=== PATIENT | male | born 1965 | race Caucasian/White ===

== ENCOUNTER 2020-03-29 09:00 | Emergency (ER) | payer BC, SELFPAY ==
[2020-03-29 09:00] VITALS: BP 149/87; PULSE 81; RESP 16; TEMP 36.7; O2SAT 98; BMI 31.7
--- NOTE | 2020-03-29 09:01 | PC.NURSE ---
radiology notified of CT stroke protocol
--- NOTE | 2020-03-29 09:01 | CT_ITS ---
PROCEDURE: CT HEAD/BRAIN WO CON CLINICAL INDICATION: stroke protocol Dizziness, double vision, right-sided weakness COMPARISON: No exams were available for comparison TECHNIQUE: Axial images obtained. All CT scans at the facility use one or more dose reduction, viz: automated exposure control, ma/kV adjustment per patient size (including targeted exams where dose is matched to indication, i.e. head), or iterative reconstruction technique. FINDINGS: No midline shift, mass effect, intracranial hemorrhage, hydrocephalus, or extra-axial fluid collection is evident. The calvarium has an unremarkable appearance. No mastoid effusion. There is minimal mucosal thickening of the maxillary sinus on the right IMPRESSION: No acute intracranial finding Dictated by: Armando Conklin MD 03/29/2020 09:25 Armando Conklin MD in [facility] 03/29/2020 09:25
--- NOTE | 2020-03-29 09:05 | PC.NURSE ---
contacted radiology to check to make sure about staff coming to get pt for stroke protocol CT, spoke with Brianna states staff is coming down to get pt
--- NOTE | 2020-03-29 09:05 | PC.NURSE ---
FSBS on arrival is 123
--- NOTE | 2020-03-29 09:12 | PC.NURSE ---
pt to CT at this time
--- NOTE | 2020-03-29 09:14 | PC.NURSE ---
Pt to rad at this time.
--- NOTE | 2020-03-29 09:17 | XR_ITS ---
PROCEDURE: XR CHEST PORTABLE CLINICAL HISTORY: cough COMPARISON: No exams were available for comparison FINDINGS: The cardiomediastinal silhouette and pulmonary vascularity are within normal limits. The lungs are clear without infiltrates, suspicious nodules, or pleural effusions. Calcified granuloma left upper lobe. Nonspecific slight elevation of the left hemidiaphragm. No acute bony findings. IMPRESSION: No acute findings. Dictated by: Armando Conklin MD 03/29/2020 09:53 Armando Conklin MD in [facility] 03/29/2020 09:53
--- NOTE | 2020-03-29 09:24 | [facility].EDWEAK ---
ED Disposition Clinical Impression: Vertigo, Arm paresthesia, right Disposition: Home, Self-Care Condition on Discharge: Good Instructions: DI for Vertigo Prescriptions: Meclizine HCl [Meclizine 25mg Tab] 25 mg PO BID #20 tab Prescription Printed Referrals: Luz Marina Phan [Primary Care Provider] - Ileana Lea MD [Staff Physician] - - Critical Care Critical Care Time: No Attestation: On , the high probability of a clinically significant, sudden or life threatening deterioration of the following system(s) required my full and direct attention, intervention and personal management. The time I documented below is in addition to time spent performing reported procedures but includes the following listed in this critical care notation. Medical Decision Making - Medical Records Medical records reviewed: Yes: I reviewed the patient's medical records. - Damaso Inquiry Pt receiving controlled substance: No Vital Signs: 03/29/20 09:00 03/29/20 09:28 03/29/20 10:21 Temperature 98.0 F Temperature Source Oral Pulse Rate [Right Radial] 81 81 61 Respiratory Rate 16 Blood Pressure [Right Arm] 149/87 H 128/82 110/73 Blood Pressure Mean [Right Arm] 107 97 85 Blood Pressure Source [Right Arm] Automatic Cuff Automatic Cuff Automatic Cuff Blood Pressure Position [Right Arm] Sitting Sitting Sitting 02 Sat by Pulse Oximetry 98 98 96 Oxygen Delivery Method Room Air Room Air Room Air 03/29/20 10:36 03/29/20 11:57 Temperature Temperature Source Pulse Rate [Right Radial] 70 65 Respiratory Rate Blood Pressure [Right Arm] 100/63 L 120/80 Blood Pressure Mean [Right Arm] 75 93 Blood Pressure Source [Right Arm] Automatic Cuff Automatic Cuff Blood Pressure Position [Right Arm] Sitting Sitting 02 Sat by Pulse Oximetry 97 98 Oxygen Delivery Method Room Air Room Air - Lab Data Lab Results 03/29/20 09:53: Urine Color Yellow, Urine Appearance Clear, Urine pH 6.0, Ur Specific [place] 1.010, Urine Protein Negative, Urine Glucose (UA) Negative, Urine Ketones Negative, Urine Blood Negative, Urine Nitrate Negative, Urine Bilirubin Negative, Urine Urobilinogen 0.2, Ur Leukocyte Esterase Negative, Urine WBC 3-5, Ur Squamous Epith Cells Occasional 03/29/20 09:53: WBC 9.7, RBC 5.23, Hgb 16.7, Hct 48.6, MCV 93.0, MCH 32.0 H, MCHC 34.4, RDW 13.4, Plt Count 245, MPV 8.1, Neut % (Auto) 75.3, Lymph % (Auto) 18.7, [place] % (Auto) 4.4, Eos % (Auto) 1.0, Baso % (Auto) 0.5, Neut # (Auto) 7.3, Lymph # (Auto) 1.8, [place] # (Auto) 0.4, Eos # (Auto) 0.1, Baso # (Auto) 0.1 03/29/20 09:53: Sodium 137, Potassium 4.0, Chloride 102, Carbon Dioxide 26, Anion Gap 13.0, BUN 15, Creatinine 0.80, Estimated Creat Clear 165, Estimated GFR 100, Est GFR ( Amer) 121, Glucose 108 H, Calcium 9.7, Total Bilirubin 0.7, AST 39, ALT 27, Alkaline Phosphatase 43, Troponin I < 0.01, NT-Pro-B Natriuret Pep 95.6, Total Protein 7.6, Albumin 4.8, Globulin 2.8, Albumin/Globulin Ratio 1.7, TSH 2.43 Result diagrams: 03/29/20 09:53 03/29/20 09:53 Orders (Tests/Meds): ORDERS Category Date Time Status Troponin I Q3H Lab 03/29/20 12:30 Ordered Troponin I Q3H Lab 03/29/20 15:30 Ordered - Radiology Data #1 Image(s): Chest Image Reviewed: Yes I reviewed the patient's radiology results, Yes I reviewed the patient's radiology image, Yes I have reviewed radiologist's interpretation Preliminary Findings: Normal/NAD #2 Image(s): Other (MRI Brain) Image Reviewed: Yes I reviewed the patient's radiology results, Yes I have reviewed radiologist's interpretation 1. No acute intracranial finding. No evidence of acute infarction. 2. Nonspecific T2 white matter hyperintensities suggesting ischemic gliotic change from microvascular disease. Differential diagnosis would include migraine headache or demyelination. - CT Data CT Scan: Head Time Received: 12:[address] Reviewed: Yes: I have reviewed the patient's CT results, I have viewed the radiol
--- NOTE | 2020-03-29 09:24 | PC.NURSE ---
Pt returned from rad
[2020-03-29 09:28] VITALS: BP 128/82; PULSE 81; O2SAT 98
--- NOTE | 2020-03-29 09:34 | PC.NURSE ---
Pt up urinating at this time. Will do EKG when he is finished.
--- NOTE | 2020-03-29 09:45 | ECG_ITS ---
APPROVED REPORT Exam: Resting ECG HR:74 bpm ECG Measurements Heart Rate 74 AXES CO 182 P 72 QRSd 104 QRS 20 QT 400 T 3 QTc 444 Conclusion Normal sinus rhythm Isolated q in III Abnormal ECG Electronically signed by : Joey Simon, 03/30/2020 19:37:48
--- NOTE | 2020-03-29 09:55 | PC.NURSE ---
pt reports he takes Lisinopril 20/25 mg, states he is supposed to take 1 tablet daily but states a 30 day supply will normally last him approx 90 days, states he does not take it like he is supposed to.
[2020-03-29 10:04] LABS: Microscopic, Urine URINE MICROSCOPIC (MICROSCOPIC)
[2020-03-29 10:06] LABS: Appearance,Urine CLEAR (Clear); Bilirubin,Urine Negative (Negative); Blood, Urine Negative (Negative); Color,Urine YELLOW (Yellow); Glucose,Urine (UA) Negative (Negative); Ketones,Urine Negative (Negative); Leukocyte Esterase,Urine Negative (Negative); Nitrate,Urine Negative (Negative); Protein,Urine Negative (Negative); Urobilinogen,Urine 0.2 EU/dl (0.2)
[2020-03-29 10:08] LABS: Basophils # 0.1 K/mm3 (0-0.2); Basophils % 0.5 % (0.1-2.0); Eosinophils # 0.1 K/mm3 (0.0-0.4); Hematocrit 48.6 % (42.0-52.0); Hemoglobin 16.7 g/dL (14.1-18.0); Lymphocytes # 1.8 K/mm3 (0.7-4.5); Lymphocytes % 18.7 % (10-50); Mean Corpuscular HGB Conc 34.4 g/dL (31.8-35.4); Mean Platelet Volume 8.1 fl (7.4-10.4); Monocytes # 0.4 K/mm3 (0.1-1.0); Monocytes % 4.4 % (1.7-9.3); Neutrophils # 7.3 K/mm3 (1.8-7.8); Neutrophils % 75.3 % (37.0-80.0); Platelet Count 245 K/mm3 (142-424); Red Blood Count 5.23 M/mm3 (4.60-6.20); Red Cell Distribution Width 13.4 % (11.5-17.5); White Blood Count 9.7 K/mm3 (4.8-10.8)
[2020-03-29 10:14] LABS: Chloride 102 mmol/L (98-107)
[2020-03-29 10:15] LABS: Sodium 137 mmol/L (136-145)
[2020-03-29 10:17] LABS: Alanine Aminotransferase 27 U/L (12-78); Alkaline Phosphatase 43 U/L (38-126); Aspartate Amino Transferase 39 U/L (17-59); Bilirubin,Total 0.7 mg/dl (0.2-1.3); Blood Urea Nitrogen 15 mg/dl (9-20); Creatinine Clearance Estimated 165 mL/min (50-200); Estimated Glomerular Filt Rate 100 ml/min (>60); GFR (African American) 121 ML/MIN (>60)
[2020-03-29 10:18] LABS: Albumin Level 4.8 g/dl (3.5-5.0); Albumin/Globulin Ratio 1.7 (1.1-1.8); Calcium 9.7 mg/dl (8.4-10.2); Carbon Dioxide 26 mmol/L (22.0-30.0); Globulin 2.8 g/dL (1.3-3.2); Glucose 108 mg/dl (74-100); Total Protein,Serum 7.6 g/dl (6.3-8.2)
[2020-03-29 10:21] VITALS: BP 110/73; PULSE 61; O2SAT 96
[2020-03-29 10:25] LABS: Squamous Epithelial Cell,Urine Occasional #/hpf (0-5)
[2020-03-29 10:27] LABS: NT Pro Brain Natriuretic Pep. 95.6 pg/mL (0-125)
[2020-03-29 10:32] LABS: Troponin I < 0.01 ng/ml (0.00-0.034)
--- NOTE | 2020-03-29 10:33 | PC.NURSE ---
contacted MRI r/t ER requesting pt have an MRI head. Spoke with Charis states she can come get pt in approx 20-30 minutes. Notified ER
--- NOTE | 2020-03-29 10:35 | MR_ITS ---
PROCEDURE: MR HEAD/BRAIN WO CON CLINICAL INDICATION: RULE OUT STROKE Right-sided weakness with slurred speech COMPARISON: CT CT HEAD/BRAIN WO CON from 03/29/2020 TECHNIQUE: Routine multiplanar multi echo sequences are performed without gadolinium enhancement. FINDINGS: No midline shift, mass effect, intracranial hemorrhage, or hydrocephalus is evident. No evidence of restricted diffusion that would indicate an area of acute infarction. There are few scattered periventricular T2 white matter hyperintensities which are nonspecific and may be due to ischemic gliotic change from microvascular disease. These areas do not demonstrate restricted diffusion. The cerebellopontine angles, cerebellum, and brainstem have an unremarkable appearance. The pituitary, optic chiasm, corpus callosum, and craniocervical junction have an unremarkable appearance. No mastoid effusion or sinus air-fluid level. IMPRESSION: 1. No acute intracranial finding. No evidence of acute infarction. 2. Nonspecific T2 white matter hyperintensities suggesting ischemic gliotic change from microvascular disease. Differential diagnosis would include migraine headache or demyelination. Dictated by: Armando Conklin MD 03/29/2020 11:58 Armando Conklin MD in [facility] 03/29/2020 11:58
[2020-03-29 10:36] VITALS: BP 100/63; PULSE 70; O2SAT 97
[2020-03-29 10:49] LABS: Thyroid Stimulating Hormone 2.43 uIU/mL (0.465-4.68)
--- NOTE | 2020-03-29 10:58 | PC.NURSE ---
Pt to MRI at this time.
--- NOTE | 2020-03-29 11:53 | PC.NURSE ---
pt return from MRI
[2020-03-29 11:57] VITALS: BP 120/80; PULSE 65; O2SAT 98
[2020-03-29 12:40] VITALS: BP 124/64; PULSE 68; RESP 18; TEMP 36.7; O2SAT 98
[2020-04-01 08:56] LABS: POC Glucose,Bedside 123 (70-110)
== END 2020-03-29 12:40 | disposition home or self-care (01) ==
PROVIDERS: Emergency Provider Emergency Medicine; PCP Family Medicine
DX: R42 Dizziness and giddiness (principal); R20.2 Paresthesia of skin; I10 Essential (primary) hypertension
CPT/HCPCS: 70450; 70551; 71045; 80053; 81001; 82962; 83880; 84443; 84484; 85025; 93005; 99284

== ENCOUNTER 2020-12-12 10:20 | Emergency (ER) | payer BC, SELFPAY ==
[2020-12-12] VITALS (11 sets, daily range): BP systolic 123–183; BP diastolic 69–93; PULSE 58–86; RESP 18–20; TEMP 36.7; O2SAT 96–98; BMI 32.1
--- NOTE | 2020-12-12 10:30 | CT_ITS ---
PROCEDURE INFORMATION: Exam: CT Angiography Neck With Contrast Exam date and time: 12/12/2020 10:30 AM Age: 55 years old Clinical indication: Dizziness and giddiness and weakness; Additional info: Dizzy, weakness TECHNIQUE: Imaging protocol: Computed tomography angiography of the neck with contrast. 3D rendering (Not supervised by radiologist): MIP and/or 3D reconstructed images were created by the technologist. Radiation optimization: All CT scans at this facility use at least one of these dose optimization techniques: automated exposure control; mA and/or kV adjustment per patient size (includes targeted exams where dose is matched to clinical indication); or iterative reconstruction. Contrast material: ISOVUE; Contrast volume: 100 ml; Contrast route: INTRAVENOUS (IV); COMPARISON: CT HEAD/BRAIN WO CON 12/12/2020 12:22 PM FINDINGS: Right common carotid artery: No stenosis. No dissection or occlusion. Right internal carotid artery: No stenosis of the extracranial segment. No dissection or occlusion. Right external carotid artery: No occlusion or stenosis of the origin. Left common carotid artery: No stenosis. No dissection or occlusion. Left internal carotid artery: No stenosis of the extracranial segment. No dissection or occlusion. Left external carotid artery: No occlusion or stenosis of the origin. Right vertebral artery: Right distal vertebral artery not visualized. 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 Thyroid: Low-attenuation nodule in the right thyroid lobe measures 1.5 x 0.7 cm, recommend additional nonemergent ultrasound workup. Soft tissues: Normal. No significant soft tissue swelling. Bones/joints: No acute fracture. IMPRESSION: 1. 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 2. Right distal vertebral artery not visualized. 3. Low-attenuation nodule in the right thyroid lobe measures 1.5 x 0.7 cm, recommend additional nonemergent ultrasound workup. COMMENTS: Consistent with the [employer]'s Incidental Findings Committee white paper (J [employer]iol 2015): In patients aged 35 years and older with an incidental thyroid nodule equal to or greater than 1.[address], MRI or extrathyroidal US, further evaluation with dedicated thyroid US is recommended for patients with normal life expectancy and without comorbidities. For smaller nodules without suspicious features, no further evaluation or follow up is recommended. REFERENCES: NASCET CRITERIA. The degree of internal carotid artery stenosis is based on NASCET criteria. Normal is no stenosis. Mild is less than 50% stenosis. Moderate is 50-69% stenosis. Severe is 70% to 99% stenosis. Total occlusion is no detectable patent lumen.
--- NOTE | 2020-12-12 10:30 | CT_ITS ---
PROCEDURE INFORMATION: Exam: CT Angiography Head With Contrast, Arteriography Exam date and time: 12/12/2020 10:30 AM Age: 55 years old Clinical indication: Dizziness and giddiness and weakness; Additional info: Dizzy, weakness TECHNIQUE: Imaging protocol: Computed tomography angiography of the head with contrast. Exam focused on the arteries. 3D rendering (Not supervised by radiologist): MIP and/or 3D reconstructed images were created by the technologist. Radiation optimization: All CT scans at this facility use at least one of these dose optimization techniques: automated exposure control; mA and/or kV adjustment per patient size (includes targeted exams where dose is matched to clinical indication); or iterative reconstruction. Contrast material: ISOVUE; Contrast volume: 100 ml; Contrast route: INTRAVENOUS (IV); COMPARISON: CT HEAD/BRAIN WO CON 12/12/2020 12:22 PM FINDINGS: ANTERIOR CIRCULATION: Right internal carotid artery: Atherosclerotic calcifications distally. Intracranial segment is patent with no significant stenosis. No aneurysm. Right middle cerebral artery: Unremarkable. No occlusion or significant stenosis. No aneurysm. Right anterior cerebral artery: Unremarkable. No occlusion or significant stenosis. No aneurysm. Left internal carotid artery: Atherosclerotic calcifications distally. Intracranial segment is patent with no significant stenosis. No aneurysm. Left middle cerebral artery: Unremarkable. No occlusion or significant stenosis. No aneurysm. Left anterior cerebral artery: Unremarkable. No occlusion or significant stenosis. No aneurysm. POSTERIOR CIRCULATION: Right vertebral artery: Distal right vertebral artery not visualized. Left vertebral artery: Occluded from the origin until C4 level. Basilar artery: Unremarkable. No occlusion or significant stenosis. No aneurysm. Right posterior cerebral artery: Unremarkable. No occlusion or significant stenosis. No aneurysm. Left posterior cerebral artery: Unremarkable. No occlusion or significant stenosis. No aneurysm. Brain: No definite mass, mass effect, or midline shift. Cerebral ventricles: No ventriculomegaly. Bones/joints: Unremarkable. No acute fracture. Soft tissues: Unremarkable. IMPRESSION: No large vessel stenosis or occlusion in the anterior circulation. Vertebral arteries as detailed on CTA neck report.
--- NOTE | 2020-12-12 10:30 | XR_ITS ---
PROCEDURE INFORMATION: Exam: XR Chest Exam date and time: 12/12/2020 10:30 AM Age: 55 years old Clinical indication: Cough TECHNIQUE: Imaging protocol: XR of the chest. Views: 1 view. COMPARISON: CR XR CHEST PORTABLE 03/29/2020 9:38 AM FINDINGS: Lungs: Possible left basilar infiltrate. Pleural spaces: Unremarkable. No pleural effusion. No pneumothorax. Heart/Mediastinum: Unremarkable. No cardiomegaly. Bones/joints: Unremarkable. IMPRESSION: Possible left basilar infiltrate.
--- NOTE | 2020-12-12 10:35 | ECG_ITS ---
APPROVED REPORT Exam: Resting ECG HR:79 bpm ECG Measurements Heart Rate 79 AXES RI 184 P 59 QRSd 106 QRS 22 QT 388 T 63 QTc 444 Conclusion Normal sinus rhythm Normal ECG Electronically signed by : Joey Simon MD 12/13/2020 18:03:15
--- NOTE | 2020-12-12 10:41 | CT_ITS ---
PROCEDURE INFORMATION: Exam: CT Head Without Contrast Exam date and time: 12/12/2020 10:41 AM Age: 55 years old Clinical indication: Dizziness; Additional info: Dizzy TECHNIQUE: Imaging protocol: Computed tomography of the head without contrast. Radiation optimization: All CT scans at this facility use at least one of these dose optimization techniques: automated exposure control; mA and/or kV adjustment per patient size (includes targeted exams where dose is matched to clinical indication); or iterative reconstruction. COMPARISON: MR HEAD/BRAIN WO CON 03/29/2020 11:11 AM FINDINGS: Brain: Prominent sulci. Patchy hypodensity of the cerebral white matter which are nonspecific but likely secondary to microangiopathic changes. Cerebral ventricles: The ventricles are prominent secondary to diffuse volume loss/atrophy. Paranasal sinuses: Mild mucoperiosteal thickening of the paranasal sinuses. Mastoid air cells: Visualized mastoid air cells are well aerated. Bones/joints: Unremarkable. No acute fracture. Soft tissues: Unremarkable. IMPRESSION: Chronic age related changes but no evidence of acute intracranial pathology.
[2020-12-12 11:04] LABS: Basophils # 0.1 K/mm3 (0-0.2); Basophils % 0.7 % (0.1-2.0); Eosinophils # 0.1 K/mm3 (0.0-0.4); Eosinophils % 1.5 % (0.1-12.0); Hemoglobin 15.8 g/dL (14.1-18.0); Lymphocytes # 1.6 K/mm3 (0.7-4.5); Lymphocytes % 20.1 % (10-50); Mean Corpuscular HGB Conc 33.6 g/dL (31.8-35.4); Mean Corpuscular Hemoglobin 31.2 pg (27.0-31.2); Mean Corpuscular Volume 92.7 fl (80-94); Mean Platelet Volume 8.6 fl (7.4-10.4); Monocytes # 0.4 K/mm3 (0.1-1.0); Monocytes % 4.4 % (1.7-9.3); Neutrophils # 5.8 K/mm3 (1.8-7.8); Neutrophils % 73.4 % (37.0-80.0); Platelet Count 205 K/mm3 (142-424); Red Blood Count 5.07 M/mm3 (4.60-6.20); Red Cell Distribution Width 13.7 % (11.5-17.5)
[2020-12-12 11:10] LABS: Chloride 106 mmol/L (98-107); Sodium 139 mmol/L (136-145)
[2020-12-12 11:12] LABS: Alanine Aminotransferase 25 U/L (12-78); Aspartate Amino Transferase 27 U/L (17-59); Blood Urea Nitrogen 14 mg/dl (9-20); Creatinine Clearance Estimated 189 mL/min (50-200); Estimated Glomerular Filt Rate 117 ml/min (>60); GFR (African American) 141 ML/MIN (>60)
[2020-12-12 11:13] LABS: Albumin Level 4.3 g/dl (3.5-5.0); Albumin/Globulin Ratio 1.7 (1.1-1.8); Alkaline Phosphatase 42 U/L (38-126); Bilirubin,Total 0.6 mg/dl (0.2-1.3); Calcium 9.3 mg/dl (8.4-10.2); Carbon Dioxide 25 mmol/L (22.0-30.0); Globulin 2.6 g/dL (1.3-3.2); Glucose 147 mg/dl (74-100); Total Protein,Serum 6.9 g/dl (6.3-8.2)
[2020-12-12 11:24] LABS: NT Pro Brain Natriuretic Pep. 72.6 pg/mL (0-125)
[2020-12-12 11:27] LABS: Troponin I < 0.01 ng/ml (0.00-0.034)
--- NOTE | 2020-12-12 11:44 | HMH.EDDIZZ ---
ED Disposition Clinical Impression: Occlusion of left vertebral artery, Vertigo Disposition: Xfer Critical Access Hosp Condition on Discharge: Fair Referrals: Provider,Referral, [Primary Care Provider] - - Critical Care Critical Care Time: No Attestation: On 12/12/20, the high probability of a clinically significant, sudden or life threatening deterioration of the following system(s) required my full and direct attention, intervention and personal management. The time I documented below is in addition to time spent performing reported procedures but includes the following listed in this critical care notation. Medical Decision Making - Medical Records Medical records reviewed: Yes: I reviewed the patient's medical records. - Damaso Inquiry Pt receiving controlled substance: No Vital Signs: 12/12/20 10:21 12/12/20 12:11 Temperature 98.0 F Temperature Source Oral Pulse Rate 70 Pulse Rate [Left Radial] 86 Respiratory Rate 18 Blood Pressure 146/88 H Blood Pressure [Right Arm] 183/91 H Blood Pressure Mean 105 Blood Pressure Mean [Right Arm] 121 Blood Pressure Source [Right Arm] Automatic Cuff Blood Pressure Position [Right Arm] Sitting 02 Sat by Pulse Oximetry 96 98 Oxygen Delivery Method Room Air - Lab Data Lab Results 12/12/20 10:55: WBC 8.0, RBC 5.07, Hgb 15.8, Hct 47.0, MCV 92.7, MCH 31.2, MCHC 33.6, RDW 13.7, Plt Count 205, MPV 8.6, Neut % (Auto) 73.4, Lymph % (Auto) 20.1, [place] % (Auto) 4.4, Eos % (Auto) 1.5, Baso % (Auto) 0.7, Neut # (Auto) 5.8, Lymph # (Auto) 1.6, [place] # (Auto) 0.4, Eos # (Auto) 0.1, Baso # (Auto) 0.1 12/12/20 10:55: Sodium 139, Potassium 4.0, Chloride 106, Carbon Dioxide 25, Anion Gap 12.0, BUN 14, Creatinine 0.70, Estimated Creat Clear 189, Estimated GFR 117, Est GFR ( Amer) 141, Glucose 147 H, Calcium 9.3, Total Bilirubin 0.6, AST 27, ALT 25, Alkaline Phosphatase 42, Troponin I < 0.01, NT-Pro-B Natriuret Pep 72.6, Total Protein 6.9, Albumin 4.3, Globulin 2.6, Albumin/Globulin Ratio 1.7, TSH 3.07 Result diagrams: 12/12/20 10:55 12/12/20 10:55 Orders (Tests/Meds): ED MEDICATIONS Discontinued Medications Generic Name Dose Route Start Last Admin Trade Name [place] PRN Reason Stop Dose Admin Aspirin 325 mg 12/12/20 14:22 12/12/20 14:26 Aspirin 325mg Tablet PO 12/12/20 14:23 325 mg ONCE ONE Administration Iopamidol 100 ml 12/12/20 12:41 12/12/20 12:42 Iopamidol-370 (76%);100ml Bottle IV 12/12/20 12:42 100 ml ONCE ONE Administration Meclizine HCl 25 mg 12/12/20 10:31 12/12/20 10:39 Meclizine 25mg Tablet PO 12/12/20 10:32 25 mg ONCE ONE Administration Sodium Chloride 50 ml 12/12/20 12:41 12/12/20 12:42 0.9 % Sodium Chloride 50 Ml Vial IV 12/12/20 12:42 50 ml ONCE ONE Administration Sodium Chloride 10 ml 12/12/20 12:41 12/12/20 12:42 Sodium Chloride 0.9% 10ml Syr (Rad Only) IV 12/12/20 12:42 10 ml ONCE ONE Administration ORDERS Category Date Time Status Troponin I Q3H Lab 12/12/20 16:45 Ordered - Radiology Data #1 Image(s): Chest Image Reviewed: Yes I reviewed the patient's radiology results, Yes I have reviewed radiologist's interpretation Preliminary Findings: Normal/NAD - CT Data CT Scan: Head, C-Spine, Other (CTA head and Neck) Time Received: 14:[address] Reviewed: Yes: I have reviewed the patient's CT results, I have viewed the radiologist's interpretation Findings Narrative: IMPRESSION: Chronic age related changes but no evidence of acute intracranial pathology. IMPRESSION: 1. 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 2. Right distal vertebral artery not visualized. 3. Low-attenuation nodule in the right thyroid lobe measures 1.5 x 0.7 cm, recommend additional nonemergent ultrasound workup. IMPRESSION: No large vessel stenosis or occlusion in the anterior circulation. Vertebral arteries as detailed on CTA neck report.
[2020-12-12 11:45] LABS: Thyroid Stimulating Hormone 3.07 uIU/mL (0.465-4.68)
--- NOTE | 2020-12-12 12:29 | PC.NURSE ---
Pt with rad.
== END 2020-12-12 18:02 | disposition critical access hospital (66) ==
PROVIDERS: Emergency Provider Emergency Medicine
DX: I65.02 Occlusion and stenosis of left vertebral artery (principal); R29.700 NIHSS score 0
CPT/HCPCS: 70450; 70496; 70498; 71045; 80053; 83880; 84443; 84484; 85025; 93005; 99284; Q9967

== ENCOUNTER 2020-12-30 15:30 | Outpatient (RCR) | payer BC, SELFPAY | END 2020-12-30 15:35 | disposition home or self-care (01) | LOC: OT 15:30 | DX: I65.02 Occlusion and stenosis of left vertebral artery (principal); R53.1 Weakness | CPT/HCPCS: 97165 ==